=== PATIENT | female | born 1990 | race Caucasian/White ===

== ENCOUNTER 2024-02-27 13:40 | Inpatient (IN) | payer OTHER ==
--- NOTE | 2024-02-27 13:58 | ED ---
General Adult HPI - General Chief complaint: Chest Pain Stated complaint: Tachycardia Time Seen by Provider: 02/27/24 13:50 Source: patient, EMS, RN notes reviewed, old records reviewed Mode of arrival: EMS Limitations: no limitations - History of Present Illness Initial comments: This is a 33-year-old female who presents to the emergency department the past medical history significant for SVT and occasional bradycardia. Patient states she has been seen by a device repair technician in the past for this. Patient states today she was at home and started noticing her heart rate going up to about 150 and felt some achiness in the chest on the left side. Patient says there is a slight bit of difficulty breathing but she felt lightheaded at the time. Patient denies any fever chills or cough. Patient denies any abdominal pain patient has any nausea vomit diarrhea. Patient has any significant drinking or drug use. - Related Data Home Medications Medication Instructions Recorded Confirmed Ascorbic Acid [Vitamin C] 500 mg PO DAILY 01/21/21 04/20/21 Cholecalciferol [Vitamin D3 (25 50 mcg PO DAILY 01/21/21 04/20/21 Mcg = 1000 Iu)] Ibuprofen [Motrin] 600 mg PO Q8HR PRN 01/21/21 04/20/21 No Known Home Medications 02/27/24 02/27/24 Allergies Allergy/AdvReac Type Severity Reaction Status Date / Time amoxicillin Allergy Rash/Hives Verified 02/27/24 14:18 Review of Systems ROS Statement: Those systems with pertinent positive or pertinent negative responses have been documented in the HPI. ROS Other: All systems not noted in ROS Statement are negative. Past Medical History Smoking Status: Never smoker Past Alcohol Use History: Occasional Past Drug Use History: None Reported - Past Family History Mother Family Medical History: Cancer, Hypertension Father Family Medical History: Diabetes Mellitus General Exam - General Exam Comments Initial Comments: GENERAL: Patient is well-developed and well-nourished. Patient is nontoxic and well- hydrated and is in mild distress. ENT: Neck is soft and supple. No significant lymphadenopathy is noted. Oropharynx is clear. Moist mucous membranes. Neck has full range of motion without eliciting any pain. EYES: The sclera were anicteric and conjunctiva were pink and moist. Extraocular movements were intact and pupils were equal round and reactive to light. Eyelids were unremarkable. PULMONARY: Unlabored respirations. Good breath sounds bilaterally. CARDIOVASCULAR: Patient is tachycardic at about 115 beats a minute ABDOMEN: Soft and nontender with normal bowel sounds. SKIN: Skin is clear with no lesions or rashes and otherwise unremarkable. NEUROLOGIC: Patient is alert and oriented x3. Cranial nerves II through XII are grossly intact. Motor and sensory are also intact. Normal speech, volume and content. Symmetrical smile. MUSCULOSKELETAL: Normal extremities with adequate strength and full range of motion. No lower extremity swelling or edema. No calf tenderness. LYMPHATICS: No significant lymphadenopathy is noted PSYCHIATRIC: Patient is mildly anxious Limitations: no limitations Course Vital Signs 02/27/24 02/27/24 13:50 15:13 Temperature 99.2 F Pulse Rate 127 H 113 H Respiratory 24 16 Rate Blood Pressure 143/109 133/96 O2 Sat by Pulse 100 99 Oximetry Medical Decision Making - Medical Decision Making EKG is interpreted by myself but EKG shows sinus tachycardia at 114 bpm MO was 131 QRS is 90 QT interval 304 QTc is 372. Patient's EKG shows no ST segment elevation or depression. Was pt. sent in by a medical professional or institution (, PA, DENTAL MANAGER, urgent care, hospital, or retirement...) When possible be specific @ -No Did you speak to anyone other than the patient for history (EMS, parent, family, police, friend...)? What history was obtained from this source @ -No Did you review nursing and triage notes (agree or disagree)? Why? @ -I reviewed and agree with nursing and triage notes Were old charts reviewed (outside hosp., previous admission, EMS record, old EKG, old radiological studies, urgent care reports/EKG's, retirement records)? Report findings @ -No old charts were reviewed Differential Diagnosis? @ -Differential Palpitations Ventricular arrhythmias, atrial arrhythmias, myocardial infarction, anemia, thyrotoxicosis, electrolyte imbalance, hypokalemia, pulmonary embolism, pulmo nary disease, drugs, alcohol, anxiety, stress.... This is not meant to be an all-inclusive list. EKG interpreted by me (3pts min.). @ -As above X-rays interpreted by me (1pt min.). @ -Chest x-ray showed no acute abnormality CT interpreted by me (1pt min.). @ -None done U/S interpreted by me (1pt. min.). @ -Ultrasound of the liver showed a heterogeneous liver typical of fatty liver What testing was considered but not performed or refused? (CT, X-rays, U/S, labs)? Why? @ -None What meds were considered but not given or refused? Why? @ -None W Did you discuss the management of the patient with other professionals (professionals i.e. , PA, DENTAL MANAGER, lab, RT, psych nurse, director of social services, sem manager, te acher, small business banking officer, case filler)? Give summary @ -I spoke with [facility]ist they agreed to admit the patient and I wrote admitting Wrist Was smoking cessation discussed for >3mins.? @ -No Was critical care preformed (if so, how long)? @ -No Were there social determinants of health that impacted care today? How? (Homelessness, low income, unemployed, alcoholism, drug addiction, transportation, low edu. Level, literacy, decrease access to med. care, snf, rehab)? @ -No Was there de-escalation of care discussed even if they declined (Discuss DNR or withdrawal of care, Hospice)? DNR status @ -No What co-morbidities impacted this encounter? (DM, HTN, Smoking, COPD, CAD, Cancer, CVA, ARF, Chemo, Hep., AIDS, mental health diagnosis, sleep apnea, morbid obesity)? @ -None Was patient admitted / discharged? Hospital course, mention meds given and route, prescriptions, significant lab abnormalities, going to OR and other pertinent info. @ -Patient's magnesium is low liver enzymes are elevated and patient remains tachycardic at about 120 beats a minute. I spoke with [facility]ist agreed admit the patient admit the patient wrote admitting orders patient will be hydrated overnight and given some Ativan because she is also very anxious. Undiagnosed new problem with uncertain prognosis? @ -No Drug Therapy requiring intensive monitoring for toxicity (Heparin, Nitro, Insulin, Cardizem)? @ -No Were any procedures done? @ -No Diagnosis/symptom? @ -Tachycardia Acute, or Chronic, or Acute on Chronic? @ -Acute Uncomplicated (without systemic symptoms) or Complicated (systemic symptoms)? @ -Complicated Side effects of treatment? @ -No Exacerbation, Progression, or Severe Exacerbation? @ -No Poses a threat to life or bodily function? How? (Chest pain, [place], NH, pneumonia, PE, COPD, DKA, ARF, appy, cholecystitis, CVA, Diverticulitis, Homicidal, Suicidal, threat to staff... and all critical care pts) @ -No Diagnosis/symptom? @ -Elevated liver enzymes Acute, or Chronic, or Acute on Chronic? @ -Acute Uncomplicated (without systemic symptoms) or Complicated (systemic symptoms)? @ -Complicated Side effects of treatment? @ -None Exacerbation, Progression, or Severe Exacerbation] @ -No Poses a threat to life or bodily function? @ -No Diagnosis/symptom? @ -Hypomagnesemia Acute, or Chronic, or Acute on Chronic? @ -Acute Uncomplicated (without systemic symptoms) or Complicated (systemic symptoms)? @ -Complicated Side effects of treatment? @ -None Exacerbation, Progression, or Severe Exacerbation] @ -No Poses a threat to life or bodily function? @ -No - Lab Data Result diagrams: 02/27/24 13:57 02/27/24 13:57 Lab Results 02/27/24 02/27/24 02/27/24 Range/Units 13:57 13:57 13:57 WBC 8.4 (3.8-10.6) k/uL RBC 4.71 (3.80-5.40) m/uL Hgb 14.4 (11.4-16.0) gm/dL Hct 41.1 (34.0-46.0) % MCV 87.2 (80.0-100.0) fL MCH 30.7 (25.0-35.0) pg MCHC 35.2 (31.0-37.0) g/dL RDW 16.3 H (11.5-15.5) % Plt Count 302 (150-450) k/uL MPV 7.3 Neutrophils % 79 % Lymphocytes % 17 % Monocytes % 2 % Eosinophils % 1 % Basophils % 0 % Neutrophils # 6.6 (1.3-7.7) k/uL Lymphocytes # 1.4 (1.0-4.8) k/uL Monocytes # 0.2 (0-1.0) k/uL Eosinophils # 0.0 (0-0.7) k/uL Basophils # 0.0 (0-0.2) k/uL Anisocytosis Slight PT 14.4 H (10.0-12.5) sec INR 1.4 H (<1.2) APTT 23.5 (22.0-30.0) sec Sodium 135 L (137-145) mmol/L Potassium 3.7 (3.5-5.1) mmol/L Chloride 98 (98-107) mmol/L Carbon Dioxide 17 L (22-30) mmol/L Anion Gap 20 mmol/L BUN 14 (7-17) mg/dL Creatinine 0.78 (0.52-1.04) mg/dL Est GFR (CKD-EPI)AfAm >90 (>60 ml/min/1.73 sqM) Est GFR (CKD-EPI)NonAf >90 (>60 ml/min/1.73 sqM) Glucose 110 H (74-99) mg/dL Calcium 9.2 (8.4-10.2) mg/dL Magnesium 1.1 L (1.6-2.3) mg/dL Total Bilirubin 2.2 H (0.2-1.3) mg/dL AST 236 H (14-36) U/L ALT 127 H (4-34) U/L Alkaline Phosphatase 156 H (38-126) U/L Troponin I (0.000-0.034) ng/mL Total Protein 7.4 (6.3-8.2) g/dL Albumin 4.9 (3.5-5.0) g/dL TSH 1.780 (0.465-4.680) mIU/L Serum Alcohol mg/dL Influenza Type A (PCR) (Not Detectd) Influenza Type B (PCR) (Not Detectd) RSV (PCR) (Not Detectd) SARS-CoV-2 (PCR) (Not Detectd) 02/27/24 02/27/24 02/27/24 Range/Units 13:57 14:07 15:13 WBC (3.8-10.6) k/uL RBC (3.80-5.40) m/uL Hgb (11.4-16.0) gm/dL Hct (34.0-46.0) % MCV (80.0-100.0) fL MCH (25.0-35.0) pg MCHC (31.0-37.0) g/dL RDW (11.5-15.5) % Plt Count (150-450) k/uL MPV Neutrophils % % Lymphocytes % % Monocytes % % Eosinophils % % Basophils % % Neutrophils # (1.3-7.7) k/uL Lymphocytes # (1.0-4.8) k/uL Monocytes # (0-1.0) k/uL Eosinophils # (0-0.7) k/uL Basophils # (0-0.2) k/uL Anisocytosis PT (10.0-12.5) sec INR (<1.2) APTT (22.0-30.0) sec Sodium (137-145) mmol/L Potassium (3.5-5.1) mmol/L Chloride (98-107) mmol/L Carbon Dioxide (22-30) mmol/L Anion Gap mmol/L BUN (7-17) mg/dL Creatinine (0.52-1.04) mg/dL Est GFR (CKD-EPI)AfAm (>60 ml/min/1.73 sqM) Est GFR (CKD-EPI)NonAf (>60 ml/min/1.73 sqM) Glucose (74-99) mg/dL Calcium (8.4-10.2) mg/dL Magnesium (1.6-2.3) mg/dL Total Bilirubin (0.2-1.3) mg/dL AST (14-36) U/L ALT (4-34) U/L Alkaline Phosphatase (38-126) U/L Troponin I <0.012 (0.000-0.034) ng/mL Total Protein (6.3-8.2) g/dL Albumin (3.5-5.0) g/dL TSH (0.465-4.680) mIU/L Serum Alcohol <10 mg/dL Influenza Type A (PCR) Not Detected (Not Detectd) Influenza Type B (PCR) Not Detected (Not Detectd) RSV (PCR) Not Detected (Not Detectd) SARS-CoV-2 (PCR) Not Detected (Not Detectd) Disposition Clinical Impression: Sinus tachycardia, Elevated liver enzymes, Hypomagnesemia Disposition: ADMITTED IP TO THIS HOSP Referrals: [facility] [NON-STAFF] - 1-2 days [facility] [NON-STAFF] - 1-2 days None,Stated [Primary Care Provider] - 1-2 days Forms: Area PCPs Time of Disposition: 15:58
[2024-02-27] MEDS: SODIUM CHLORIDE 0.9% 500 ML 500 ML IV STA (14:02)
[2024-02-27] MEDS: LORazepam 2 MG/ML INJ IV STA (14:03)
[2024-02-27 14:10] LABS: Anisocytosis Slight; Basophils % (A) 0 %; Eosinophils % (A) 1 %; HCT 41.1 % (34.0-46.0); HGB 14.4 gm/dL (11.4-16.0); Lymphocytes # (A) 1.4 k/uL (1.0-4.8); Lymphocytes % (A) 17 %; MCH 30.7 pg (25.0-35.0); MCHC 35.2 g/dL (31.0-37.0); MCV 87.2 fL (80.0-100.0); Mean Platelet Volume 7.3; Monocytes # (A) 0.2 k/uL (0-1.0); Monocytes % (A) 2 %; Neutrophils # (A) 6.6 k/uL (1.3-7.7); Neutrophils % (A) 79 %; Platelet Count 302 k/uL (150-450); RBC 4.71 m/uL (3.80-5.40); RDW 16.3 % (11.5-15.5); WBC 8.4 k/uL (3.8-10.6)
[2024-02-27 14:19] LABS: ALT 127 U/L (4-34); AST 236 U/L (14-36); African American GFR (CKD) >90 (>60 ml/min/1.73 sqM); Albumin 4.9 g/dL (3.5-5.0); Alkaline Phosphatase 156 U/L (38-126); Anion Gap 20 mmol/L; Blood Urea Nitrogen 14 mg/dL (7-17); Calcium 9.2 mg/dL (8.4-10.2); Carbon Dioxide 17 mmol/L (22-30); Chloride 98 mmol/L (98-107); Glucose 110 mg/dL (74-99); Magnesium 1.1 mg/dL (1.6-2.3); Non-African American GFR(CKD) >90 (>60 ml/min/1.73 sqM); Potassium 3.7 mmol/L (3.5-5.1); Sodium 135 mmol/L (137-145); Total Bilirubin 2.2 mg/dL (0.2-1.3); Total Protein 7.4 g/dL (6.3-8.2)
--- NOTE | 2024-02-27 14:20 | XR ---
EXAMINATION TYPE: XR chest 2V DATE OF EXAM: 02/27/2024 CLINICAL HISTORY: Dysrhythmia TECHNIQUE: Frontal and lateral views of the chest are obtained. COMPARISON: Chest x-ray November 15, 2020 FINDINGS: There is no focal air space opacity, pleural effusion, or pneumothorax seen. The cardiac silhouette size is stable and within normal limits. Overlying EKG leads are seen on current study. T he osseous structures are intact. IMPRESSION: No acute process. [facility], , 02/27/2024 2:16 PM
[2024-02-27 14:24] LABS: INR 1.4 (<1.2); Partial Thromboplastin Time 23.5 sec (22.0-30.0); Prothrombin Time 14.4 sec (10.0-12.5)
[2024-02-27] MEDS: SODIUM CHLORIDE 0.9% 1,000 ML IV ONE ×2 (15:05→16:27)
[2024-02-27] MEDS: MAGNESIUM SULFATE-D5W PMX 1 GM in DEXTROSE/WATER 1 100ML.BAG IVPB SCH (15:07)
--- NOTE | 2024-02-27 15:41 | US ---
EXAMINATION TYPE: US gallbladder DATE OF EXAM: 02/27/2024 COMPARISON: CT & US CLINICAL INDICATION: Female, 33 years old with history of Elevated liver enzymes; Elevated LFT's TECHNIQUE: Grayscale and color Doppler imaging of the right upper quadrant was performed. FINDINGS: EXAM MEASUREMENTS: Liver Length: 23.7 cm Gallbladder Wall: 0.2 cm CBD: 0.2 cm Right Kidney: 12.5 x 4.2 x 5.0 cm [employer] NOTES: Pancreas: Difficult to visualize due to enlarged liver Liver: Enlarged, heterogeneous, difficult to penetrate Gallbladder: wnl Evidence for sonographic Lane's sign: No CBD: wnl Right Kidney: No evidence of hydro Persistent hepatomegaly. Liver remains heterogeneously hyperechoic. Evaluation for masses suboptimal due to the heterogeneity. Finding likely on basis of diffuse fatty infiltration. IMPRESSION: Persistent hepatomegaly. Diffuse fatty infiltrative hepatocellular disease remains present. [facility], , 02/27/2024 3:39 PM
[2024-02-27] MEDS ORDERED: LORazepam 2 MG/ML INJ IV PRN (15:59)
[2024-02-28 02:03] VITALS: RESP 16
[2024-02-28 07:34] VITALS: BP 152/98; PULSE 87; TEMP 98.3
[2024-02-28 09:11] LABS: ALT 94 U/L (4-34); AST 201 U/L (14-36); African American GFR (CKD) >90 (>60 ml/min/1.73 sqM); Albumin/Globulin Ratio 1.7; Alkaline Phosphatase 134 U/L (38-126); Anion Gap 8 mmol/L; Blood Urea Nitrogen 5 mg/dL (7-17); Calcium 8.6 mg/dL (8.4-10.2); Carbon Dioxide 27 mmol/L (22-30); Chloride 100 mmol/L (98-107); Globulin 2.3 g/dL; Glucose 139 mg/dL (74-99); Non-African American GFR(CKD) >90 (>60 ml/min/1.73 sqM); Potassium 3.4 mmol/L (3.5-5.1); Sodium 135 mmol/L (137-145); Total Bilirubin 3.4 mg/dL (0.2-1.3); Total Protein 6.3 g/dL (6.3-8.2)
[2024-02-28] MEDS ORDERED: Potassium Replacement Protocol 1 EACH MISC MISCELLANE PRN (11:38)
--- NOTE | 2024-02-28 13:28 | P.CRDCN ---
History of Present Illness Consult date: 02/28/24 Reason for Consult (text): Arrhythmia while sitting, palpitations History of present illness: This is a 33-year-old female patient of Dr. Michelle Arciniega with past medical history of palpitations, SVT, migraine headaches. Patient states that she was diagnosed with SVT when she was in high school. She states she does use vagal maneuvers to help resolve it when it occurs. Yesterday she had a very severe episode and heart rate was up in the 150s while at rest. She states her hands became tingling and she had some chest discomfort. She tried vagal maneuvers but with no improvement and came into the hospital. She states that when she arrived she started having a panic attack. Patient was given Ativan IV, magnesium IV, potassium chloride, 2-1/2 L of IV fluid. Patient states she is feeling better now. She thinks that maybe she was not drinking enough water yesterday. She states she recently had cold symptoms. No nausea or vomiting or diarrhea. The chest discomfort that she experienced yesterday was in the upper chest area but none now. She states yesterday's episode was the worst that she has ever had. Blood pressure 152/98, heart rate 87, pulse ox 100% on room air. Telemetry reviewed. Patient denies history of preeclampsia during but she did have tachycardia. -EKG:sinus tachycardia -Chest x-ray: No acute process -Laboratory studies: WBC 8.4, hemoglobin 14.4, sodium 135, potassium 3.7, creatinine 0.70. Magnesium 1.1 followed by 2.3. Serum alcohol less than 10. Influenza A, influenza B, RSV, COVID-19 not detected. TSH 1.78. Total bilirubin 3.4, AST 201, ALT 94, alkaline phosphatase 134. -Home cardiac medications: None -Exercise stress test performed in the office on 12/26/2020 revealed good exercis e tolerance, normal electrographic response to exercise with no evidence of stress-induced ischemia. -Echocardiogram performed in the office on 12/26/2020 revealed EF 55%, trace to mild mitral regurgitation, mild tricuspid regurgitation, mild pulmonic regurgitation, PASP 22 mmHg. 24-hour Holter performed on 11/25/2020 revealed sinus rhythm with episodes of sinus bradycardia and tachycardia. Review Of Systems: At the time of my exam: CONSTITUTIONAL: Denies fever or chills. HEENT: Denies blurred vision, vision changes, or eye pain. Denies hemoptysis CARDIOVASCULAR: Denies chest pain. Denies orthopnea. Denies PND. Denies palpitations RESPIRATORY: Denies shortness of breath. GASTROINTESTINAL: Denies abdominal pain. Denies nausea or vomiting. HEMATOLOGIC: Denies bleeding disorders. GENITOURINARY: Denies any blood in urine. SKIN: Denies puritis. Denies rash. Physical examination: Gen: This is a 33-year-old female in no acute distress VS: reviewed HEENT: Head is atraumatic, normocephalic. Pupils equal, round. Sclerae is anicteric. NECK: Supple. No JVD. LUNGS: Clear to auscultation. No wheezes or rhonchi. No intercostal retractions. HEART: Regular rate and rhythm. No murmur. ABDOMEN: Soft No tenderness. EXTREMITIES: No pedal edema. No calf tenderness. NEUROLOGICAL: Patient is awake, alert and oriented x3. Assessment: Sinus tachycardia/SVT Panic attack Elevated liver function test History of migraine headaches Plan: Patient will be provided a prescription for Cardizem 60 mg to take as needed when she is experiencing tachycardia unresolved with vagal maneuvers 30-day event monitor will be arranged through the office. Patient to tile picker event monitor today after she leaves the hospital. Follow-up appointment with Dr. Michelle Arciniega in 5 weeks. Patient is cleared for discharge from a cardiology perspective. Thank you kindly for this consultation. Nurse practitioner note has been reviewed, I agree with documented findings and plan of care. Patient was seen and examined. Past Medical History Past Medical History: Asthma, Supraventricular Tachycardia (SVT) History of Any Multi-Drug Resistant Organisms: None Reported Additional Past Surgical History / Comment(s): Removal of the left eye conjunctival cyst, removal of the cyst in right calf Past Anesthesia/Blood Transfusion Reactions: No Reported Reaction Past Psychological History: No Psychological Hx Reported Smoking Status: Never smoker Past Alcohol Use History: Occasional Past Drug Use History: None Reported - Past Family History Mother Family Medical History: Cancer, Hypertension Additional Family Medical History / Comment(s): skin cancer Father Family Medical History: Diabetes Mellitus Medications and Allergies Home Medications Medication Instructions Recorded Confirmed Type Ascorbic Acid [Vitamin C] 500 mg PO DAILY 01/21/21 04/20/21 History Cholecalciferol [Vitamin D3 (25 50 mcg PO DAILY 01/21/21 04/20/21 History Mcg = 1000 Iu)] Ibuprofen [Motrin] 600 mg PO Q8HR PRN 01/21/21 04/20/21 History Diltiazem Oral [Cardizem Oral] 60 mg PO DAILY PRN #30 tablet 02/28/24 Rx Allergies Allergy/AdvReac Type Severity Reaction Status Date / Time amoxicillin Allergy Rash/Hives Verified 02/27/24 14:18 Physical Exam Vitals: Vital Signs Temp Pulse Pulse Resp BP BP Pulse Ox 02/28/24 06:50 98.3 F 87 16 152/98 100 02/28/24 02:00 98.2 F 85 16 142/94 98 02/27/24 19:25 98.2 F 93 17 134/86 100 02/27/24 18:11 94 16 134/95 99 02/27/24 16:22 99 18 139/95 100 02/27/24 15:13 113 H 16 133/96 99 02/27/24 13:50 99.2 F 127 H 24 143/109 100 Intake and Output 02/27/24 02/28/24 02/28/24 22:59 06:59 14:59 Intake Total 480 540 118 Balance 480 540 118 Intake: Oral 480 540 118 Other: Weight 72.575 kg Results 02/27/24 13:57 02/28/24 08:20 Cardiac Enzymes 02/27/24 02/27/24 02/28/24 Range/Units 13:57 13:57 08:20 AST 236 H 201 H (14-36) U/L Troponin I <0.012 (0.000-0.034) ng/mL Coagulation 02/27/24 Range/Units 13:57 PT 14.4 H (10.0-12.5) sec APTT 23.5 (22.0-30.0) sec CBC 02/27/24 Range/Units 13:57 WBC 8.4 (3.8-10.6) k/uL RBC 4.71 (3.80-5.40) m/uL Hgb 14.4 (11.4-16.0) gm/dL Hct 41.1 (34.0-46.0) % Plt Count 302 (150-450) k/uL Comprehensive Metabolic Panel 02/27/24 02/28/24 Range/Units 13:57 08:20 Sodium 135 L 135 L (137-145) mmol/L Potassium 3.7 3.4 L (3.5-5.1) mmol/L Chloride 98 100 (98-107) mmol/L Carbon Dioxide 17 L 27 (22-30) mmol/L BUN 14 5 L (7-17) mg/dL Creatinine 0.78 0.70 (0.52-1.04) mg/dL Glucose 110 H 139 H (74-99) mg/dL Calcium 9.2 8.6 (8.4-10.2) mg/dL AST 236 H 201 H (14-36) U/L ALT 127 H 94 H (4-34) U/L Alkaline Phosphatase 156 H 134 H (38-126) U/L Total Protein 7.4 6.3 (6.3-8.2) g/dL Albumin 4.9 4.0 (3.5-5.0) g/dL Current Medications Generic Name Dose Route Start Last Admin Trade Name Freq PRN Reason Stop Dose Admin Lorazepam 1 mg 02/27/24 15:59 Lorazepam 2 Mg/Ml Inj IV Q4HR PRN Anxiety Miscellaneous Information 1 each 02/28/24 11:38 Potassium Replacement Protocol 1 Each Misc MISCELLANE DAILY PRN Per Protocol Protocol Potassium Chloride 20 meq 02/28/24 12:00 Potassium Chloride Er 20 Meq Tab.Er PO 02/28/24 13:01 Q1HR [facility] Protocol Intake and Output 02/27/24 02/28/24 02/28/24 22:59 06:59 14:59 Intake Total 480 540 118 Balance 480 540 118 Intake: Oral 480 540 118 Other: Weight 72.575 kg 02/27/24 13:57 02/28/24 08:20
[2024-02-28] MEDS: POTASSIUM CHLORIDE ER 20 MEQ TAB.ER PO SCH (13:29)
--- NOTE | 2024-02-29 10:13 | P.HPIM ---
History of Present Illness H&P Date: 02/28/24 This is a very pleasant 33-year-old female who presented to the emergency department with palpitations and feeling like her heart rate was extremely elevated. When checking patient reports her heart rate was in the 140s and 150s with no exertion. Patient does not currently have a primary care provider although does follow with Dr. Arciniega outpatient but has not in a few years regarding SVT. Patient was admitted for hypomagnesemia as magnesium was found to be 1.1. Cardiology placed on consult for evaluation and may benefit from an event monitor and outpatient follow-up. On exam patient does not elicit any further heart palpitations overnight and reports to feeling well and is inquiring about being discharged. Awaiting cardiology consult and evaluation. Ultrasound of the gallbladder was done with no acute findings noted. Patient did note to have elevated LFTs and elevated total bili. Patient does admit to drinking heavily over the last few days although does not normally drink this much. REVIEW OF SYSTEMS: CONSTITUTIONAL: No fever, no malaise, no fatigue. HEENT: No recent visual problems or hearing problems. Denied any sore throat. CARDIOVASCULAR: No chest pain, orthopnea, PND, patient reported palpitations that has resolved, no syncope. PULMONARY: No shortness of breath, no cough, no hemoptysis. GASTROINTESTINAL: No diarrhea, no nausea, no vomiting, no abdominal pain. NEUROLOGICAL: No headaches, no weakness, no numbness. HEMATOLOGICAL: Denies any bleeding or petechiae. GENITOURINARY: Denies any burning micturition, frequency, or urgency. MUSCULOSKELETAL/RHEUMATOLOGICAL: Denies any joint pain, swelling, or any muscle pain. ENDOCRINE: Denies any polyuria or polydipsia. The rest of the 14-point review of systems is negative. PHYSICAL EXAMINATION: GENERAL: The patient is alert and oriented x3, not in any acute distress. Well developed, well nourished. HEENT: Pupils are round and equally reacting to light. EOMI. No scleral icterus. No conjunctival pallor. Normocephalic, atraumatic. No pharyngeal erythema. No thyromegaly. CARDIOVASCULAR: S1 and S2 present. No murmurs, rubs, or gallops. PULMONARY: Chest is clear to auscultation, no wheezing or crackles. ABDOMEN: Soft, nontender, nondistended, normoactive bowel sounds. No palpable organomegaly. MUSCULOSKELETAL: No joint swelling or deformity. EXTREMITIES: No cyanosis, clubbing, or pedal edema. NEUROLOGICAL: Gross neurological examination did not reveal any focal deficits. SKIN: No rashes. Assessment: Palpitations, sinus tachycardia on EKG History of SVT History of anxiety and panic attacks Elevated LFTs, trending down, patient reports to drinking heavily over the last few days EtOH use History of asthma, not in exacerbation GI prophylaxis DVT prophylaxis Full code Plan: Patient was admitted overnight placed on telemetry monitoring awaiting cardiology evaluation. 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 The impression and plan of care has been dictated by Mariam Edouard, Nurse Practitioner as directed. Dr. Brandon MD I have performed a history and examination and MDM of this patient, discussed the same with the dictator, and agree with the dictator's assessment and plan as written ,documented as a scribe. Based on total visit time, I have performed more than 50% of the visit. Past Medical History Past Medical History: Asthma, Supraventricular Tachycardia (SVT) History of Any Multi-Drug Resistant Organisms: None Reported Additional Past Surgical History / Comment(s): Removal of the left eye conjunctival cyst, removal of the cyst in right calf Past Anesthesia/Blood Transfusion Reactions: No Reported Reaction Past Psychological History: No Psychological Hx Reported Smoking Status: Never smoker Past Alcohol Use History: Occasional Past Drug Use History: None Reported - Past Family History Mother Family Medical History: Cancer, Hypertension Additional Family Medical History / Comment(s): skin cancer Father Family Medical History: Diabetes Mellitus Medications and Allergies Home Medications Medication Instructions Recorded Confirmed Type Ascorbic Acid [Vitamin C] 500 mg PO DAILY 01/21/21 04/20/21 History Cholecalciferol [Vitamin D3 (25 50 mcg PO DAILY 01/21/21 04/20/21 History Mcg = 1000 Iu)] Ibuprofen [Motrin] 600 mg PO Q8HR PRN 01/21/21 04/20/21 History Diltiazem Oral [Cardizem Oral] 60 mg PO DAILY PRN #30 tablet 02/28/24 Rx Allergies Allergy/AdvReac Type Severity Reaction Status Date / Time amoxicillin Allergy Rash/Hives Verified 02/27/24 14:18 Physical Exam Vitals: Vital Signs Temp Pulse Pulse Resp BP BP Pulse Ox 02/28/24 06:50 98.3 F 87 16 152/98 100 02/28/24 02:00 98.2 F 85 16 142/94 98 02/27/24 19:25 98.2 F 93 17 134/86 100 02/27/24 18:11 94 16 134/95 99 02/27/24 16:22 99 18 139/95 100 02/27/24 15:13 113 H 16 133/96 99 02/27/24 13:50 99.2 F 127 H 24 143/109 100 Intake and Output 02/27/24 02/28/24 02/28/24 22:59 06:59 14:59 Intake Total 480 540 Balance 480 540 Intake: Oral 480 540 Other: Weight 72.575 kg Results CBC & Chem 7: 02/27/24 13:57 02/28/24 08:20 Labs: Abnormal Lab Results - Last 24 Hours (Table) 02/27/24 02/27/24 02/27/24 Range/Units 13:57 13:57 13:57 RDW 16.3 H (11.5-15.5) % PT 14.4 H (10.0-12.5) sec INR 1.4 H (<1.2) Sodium 135 L (137-145) mmol/L Potassium (3.5-5.1) mmol/L Carbon Dioxide 17 L (22-30) mmol/L BUN (7-17) mg/dL Glucose 110 H (74-99) mg/dL Magnesium 1.1 L (1.6-2.3) mg/dL Total Bilirubin 2.2 H (0.2-1.3) mg/dL AST 236 H (14-36) U/L ALT 127 H (4-34) U/L Alkaline Phosphatase 156 H (38-126) U/L 02/28/24 Range/Units 08:20 RDW (11.5-15.5) % PT (10.0-12.5) sec INR (<1.2) Sodium 135 L (137-145) mmol/L Potassium 3.4 L (3.5-5.1) mmol/L Carbon Dioxide (22-30) mmol/L BUN 5 L (7-17) mg/dL Glucose 139 H (74-99) mg/dL Magnesium (1.6-2.3) mg/dL Total Bilirubin 3.4 H (0.2-1.3) mg/dL AST 201 H (14-36) U/L ALT 94 H (4-34) U/L Alkaline Phosphatase 134 H (38-126) U/L Thrombosis Risk Factor Assmnt - Choose All That Apply Each Factor Represents 1 point: Obesity (BMI >25) Each Risk Factor Represents 3 Points: Family history of DVT/PE Thrombosis Risk Factor Assessment Total Risk Factor Score: 4 Thrombosis Risk Factor Assessment Level: Moderate Risk
--- NOTE | 2024-02-29 10:16 | P.DS ---
Providers Date of admission: 02/27/24 16:00 Expected date of discharge: 02/28/24 Attending physician: Charanjit Mena MD Consults: 02/28/24 11:39 Consult Physician Stat Consulting Provider: Tim Dubose Consult Reason/Comments: arrhythmia while sitting, palpitations Do you want consulting provider notified?: Yes Primary care physician: Stated None Hospital Course: Final diagnosis Palpitations, sinus tachycardia on EKG History of SVT Elevated LFTs, trending down, patient reports to drinking heavily over the last few days EtOH use History of asthma, not in exacerbation History of anxiety and panic attacks GI prophylaxis DVT prophylaxis Full code Discharge disposition Patient is being discharged in a stable condition with guarded prognosis to home with an event monitor. Patient is to pick it up at the clinic per cardiology. Patient will follow-up with Dr. Aayush Arciniega in the outpatient setting upon discharge. Patient is to continue with current medications and also establish with a primary care provider as scheduled. Total time taken is greater than 35 minutes. Hospital course This is a 33-year-old female who was recently admitted with palpitations and arrhythmia feeling her heart rate was in the 150s. Patient evaluated maintained on telemetry monitoring with no further heart rate elevation noted. Patient to have an event monitor placed and be evaluated by cardiology in the outpatient setting. Patient was evaluated by cardiology and cleared for discharge as patient reports to feeling improved and would like to go home. Patient was provided resources for primary care provider to establish with on discharge. Patient reports has been drinking heavily over the last few days given the holiday and does not normally drink this much. LFTs are elevated although trending down and recommend outpatient follow-up with repeat labs. Please refer to cardiology consultation notes for further HPI. Currently no reports of chest pain, shortness of breath, or palpitations. Patient is afebrile. No reports of nausea or vomiting and patient is tolerating diet. Patient will be discharged home today. Physical exam: Gen: This is a 33-year-old female who is awake, alert and oriented x 3, well- developed, well-nourished HEENT: Head is atraumatic, normocephalic. Pupils equal, round. Sclerae is anicteric. NECK: Supple. No JVD. No lymphadenopathy. No thyromegaly. LUNGS: Diminished breath sounds bilaterally otherwise clear to auscultation. No wheezes or rhonchi. No intercostal retractions. HEART: Regular rate and rhythm. No murmur. ABDOMEN: Soft. Bowel sounds are present. No masses. No tenderness. EXTREMITIES: No pedal edema. No calf tenderness. NEUROLOGICAL: Patient is awake, alert and oriented x3. Cranial nerves 2 through 12 are grossly intact. Please refer to medication reconciliation sheet for a list of medications. The impression and plan of care has been dictated by Mariam Edouard, Nurse Practitioner as directed. Dr. Brandon MD I have performed a history and examination and MDM of this patient, discussed the same with the dictator, and agree with the dictator's assessment and plan as written ,documented as a scribe. Based on total visit time, I have performed more than 50% of the visit. Patient Condition at Discharge: Good Plan - Discharge Summary Discharge Rx Participant: Yes New Discharge Prescriptions: New Diltiazem Oral [Cardizem Oral] 60 mg PO DAILY PRN #30 tablet PRN Reason: tachycardia Continue Cholecalciferol [Vitamin D3 (25 Mcg = 1000 Iu)] 50 mcg PO DAILY Ascorbic Acid [Vitamin C] 500 mg PO DAILY Ibuprofen [Motrin] 600 mg PO Q8HR PRN PRN Reason: Pain Discharge Medication List Ascorbic Acid [Vitamin C] 500 mg PO DAILY 01/21/21 [History] Cholecalciferol [Vitamin D3 (25 Mcg = 1000 Iu)] 50 mcg PO DAILY 01/21/21 [History] Ibuprofen [Motrin] 600 mg PO Q8HR PRN 01/21/21 [History] Diltiazem Oral [Cardizem Oral] 60 mg PO DAILY PRN #30 tablet 02/28/24 [Rx] Follow up Appointment(s)/Referral(s): [facility] [NON-STAFF] - 1-2 days [facility] [NON-STAFF] - 1-2 days None,Stated [Primary Care Provider] - 1-2 days Aayush Arciniega MD [STAFF PHYSICIAN] - 03/08/24 3:00 pm Patient Instructions/Handouts: Non-Alcoholic Fatty Liver Disease (DC) Activity/Diet/Wound Care/Special Instructions: Patient to lemon picker 30-day event monitor at [facility] office Activity limited until follow-up Follow-up with cardiology outpatient Obtain primary care provider to establish with Discharge/Stand Alone Forms: [facility] PCPs Discharge Disposition: HOME SELF-CARE
== END 2024-02-28 14:19 | disposition home or self-care (01) | DRG 310 ==
LOC: EC 13:40 → 6NMEDSUR 16:00
PROVIDERS: ADMIT Internal Medicine; ATTEND Internal Medicine
DX: I47.10 Supraventricular tachycardia, unspecified (principal); E83.42 Hypomagnesemia; F41.0 Panic disorder [episodic paroxysmal anxiety]; J45.909 Unspecified asthma, uncomplicated; G43.909 Migraine, unspecified, not intractable, without status migrainosus; R74.8 Abnormal levels of other serum enzymes; R94.5 Abnormal results of liver function studies; Z20.822 Contact with and (suspected) exposure to COVID-19; Z88.0 Allergy status to penicillin; Z79.899 Other long term (current) drug therapy
CPT/HCPCS: 36415; 71046; 76705; 80053; 80320; 83735; 84443; 84484; 85025; 85610; 85730; 87636; 93005; 96361; 96365; 96375; 99285